=== PATIENT | male | born 1935 | race Hispanic/Latino ===

== ENCOUNTER 2018-03-13 10:06 | Day surgery (SDC) | payer MEDICARE ==
[2018-03-13] VITALS (10 sets, daily range): BP systolic 128–161; BP diastolic 70–104
[~2018-03-13 10:06] MED LIST: CLINDAMYCIN 600 MG/D5% WATER 50 ML IV ONE; CLINDAMYCIN 600 MG/D5% WATER 50 ML IV SCH; SODIUM CHLORIDE 0.9% 1000ML 1,000 ML IV ONE
[2018-03-13] MEDS ORDERED: PROPOFOL 10 MG/ML 20ML VIAL IV ONE (10:31)
== END 2018-03-13 13:25 ==
LOC: DAH 10:06
PROVIDERS: ATTEND Surgery
DX: R13.10 Dysphagia, unspecified (principal); I12.9 Hypertensive chronic kidney disease with stage 1 through stage 4 chronic kidney disease, or unspecified chronic kidney disease; E11.22 Type 2 diabetes mellitus with diabetic chronic kidney disease; N18.9 Chronic kidney disease, unspecified; F03.90 Unspecified dementia, unspecified severity, without behavioral disturbance, psychotic disturbance, mood disturbance, and anxiety; I82.5Z9 Chronic embolism and thrombosis of unspecified deep veins of unspecified distal lower extremity; E78.5 Hyperlipidemia, unspecified; I25.10 Atherosclerotic heart disease of native coronary artery without angina pectoris; K74.60 Unspecified cirrhosis of liver; Z79.899 Other long term (current) drug therapy; Z88.0 Allergy status to penicillin; Z98.890 Other specified postprocedural states; Z95.1 Presence of aortocoronary bypass graft; Z87.01 Personal history of pneumonia (recurrent)
CPT/HCPCS: 43246; 82948; 93005; A4606; J2704; J3490; J7030; 43235

== ENCOUNTER 2019-05-10 07:23 | Day surgery (SDC) | payer MEDICARE ==
[2019-05-10] VITALS (8 sets, daily range): BP systolic 123–136; BP diastolic 31–92
[~2019-05-10 07:23] MED LIST changes: -CLINDAMYCIN 600 MG/D5% WATER 50 ML IV ONE; -CLINDAMYCIN 600 MG/D5% WATER 50 ML IV SCH
[2019-05-10] MEDS ORDERED: DIVA125T2 PO ×2 (09:17)
[2019-05-10] MEDS ORDERED: CLOT15C TP (09:17)
[2019-05-10] MEDS ORDERED: INSU100V12 SQ (09:17)
[2019-05-10] MEDS ORDERED: DSSL PO (09:17)
[2019-05-10] MEDS ORDERED: ACET-2247 PO (09:17)
[2019-05-10] MEDS ORDERED: PROPOFOL 10 MG/ML 20ML VIAL IV ONE (09:27)
== END 2019-05-10 10:40 ==
LOC: DAH 07:23
PROVIDERS: ATTEND Internal Medicine Gastroenterology
DX: R13.12 Dysphagia, oropharyngeal phase (principal); K31.89 Other diseases of stomach and duodenum; K26.9 Duodenal ulcer, unspecified as acute or chronic, without hemorrhage or perforation; K94.23 Gastrostomy malfunction; K21.9 Gastro-esophageal reflux disease without esophagitis; I48.0 Paroxysmal atrial fibrillation; F03.90 Unspecified dementia, unspecified severity, without behavioral disturbance, psychotic disturbance, mood disturbance, and anxiety; E11.51 Type 2 diabetes mellitus with diabetic peripheral angiopathy without gangrene
CPT/HCPCS: 43246; 82948 ×2; A4215; A4221; A4222; A4223; A4606; A4615; A4663; J2704; J7030